=== PATIENT | female | born 1950 | race Caucasian/White ===

== ENCOUNTER 2024-08-15 10:00 | Emergency (ER) | payer OTHER, SELFPAY ==
[2024-08-15 10:03] VITALS: BP 146/57
--- NOTE | 2024-08-15 12:02 | ED.GENMED ---
History of Present Illness
General
Chief Complaint: Cardiac Symptoms
Time Seen by Provider: 08/15/24 11:40
History of Present Illness
History of Present Illness:
74-year-old female with history of hypertension presents to the emergency department for evaluation of a reportedly abnormal EKG. Patient was seen in urgent care for symptoms of fever, body aches, sore throat, and general aches for the past 24
hours. While there she reportedly had a positive strep test, negative COVID and flu, and unremarkable chest x-ray. He also attempted an EKG concerned about the reading thus sent her to the emergency department for further workup. The patient
explicitly denies any chest pain, shortness of breath, or dyspnea on exertion.
Past History
Past History
ED Past Medical History: None
Review of Systems
Review of Systems
Allergies reviewed?: Yes
All Other Systems: ROS reviewed and negative except as documented in HPI and ROS
Phy Exam
Physical Exam
Physical Exam:
GEN: Well appearing, NAD, WDWN
HEENT: Oral mucosa moist, no scleral icterus
Cardiac: Regular rate and rhythm, no murmurs
Lung: No respiratory distress, no tachypnea, lungs clear to auscultation bilaterally
MSK: No gross deformity or injuries
Skin: Good color, no pallor or jaundice, no rashes
Neuro: AO x3, moves all extremities freely
Psych: Calm, cooperative
Sepsis
Sepsis Screening
Sepsis Assessment: Sepsis Ruled Out
Sepsis Screen
Sepsis Screen: Sepsis Ruled Out
Date: 08/15/24
Time: 14:55
Course
Orders/Labs/Results
Orders:
Orders
08/15/24 10:03
Electrocardiogram (*1) Urgent
Reason for Study: Abnormal EKG
EKG- Treatment ONCE
Vital Signs
Initial and Last Documented VS:
Initial Vital Signs
Temp Pulse Resp BP Pulse Ox
101 F H 101 16 146/57 94
08/15/24 10:03 08/15/24 10:03 08/15/24 10:03 08/15/24 10:03 08/15/24 10:03
Last Documented Vital Signs
Temp Pulse Resp BP Pulse Ox
101 F H 90 14 146/57 95
08/15/24 10:03 08/15/24 11:45 08/15/24 11:45 08/15/24 10:03 08/15/24 11:45
MDM/Problems Addressed
MDM/Problems Addressed:
EKG does have subtle lateral ST depressions however the patient has no active symptoms concerning for coronary disease thus there is no indication for workup here. Will recommend outpatient cardiology follow-up on a routine basis
*Critical Care Note
Total Time (30-74mins, 75-104mins- exclusive of procedures): Not Applicable
ED Attending Note
-
Portions of this chart may have been created with voice recognition software.� Occasional wrong word or��sound alike� substitutions may have occurred due to the inherent limitations of voice recognition software.
Discharge Plan
Departure
Patient Disposition: Home (Routine Discharge)
Date of Disposition: 08/15/24
Time of Disposition: 12:03
Patient with high blood pressure during this ER visit?: Yes
Discharge Problem:
Acute streptococcal pharyngitis, Abnormal ECG
Instructions: Strep Throat ED
Referrals:
Lolly Nelson DO [Family Provider] -
Agnieszka Plata MD [Active] -
Interventions
Interventions:
*Risk Screen - Suicide Last Done: 08/15/24 10:05
*General Assessment Last Done: 08/15/24 11:43
*Neglect/Abuse Screening Last Done: 08/15/24 10:05
ED- Fall Risk Assessment Last Done: 08/15/24 11:45
*ED COVID-19 Vaccine History Last Done: 08/15/24 11:43
*Nursing Disposition Last Done: 08/15/24 12:37
ED- Pulmonary Assessment Last Done: 08/15/24 11:43
ED- Cardiac Assessment Last Done: 08/15/24 11:45
Discharge Date and Time
Discharge Date/Time: 08/15/24 12:39
Print Language: [id number]
== END 2024-08-15 12:39 | disposition home or self-care (01) ==
LOC: EMR 10:00
PROVIDERS: EMERGENCY PHYSICIAN Emergency Medicine; FAMILY PHYSICIAN Family Medicine
DX: J02.0 Streptococcal pharyngitis (principal); R94.31 Abnormal electrocardiogram [ECG] [EKG]; I10 Essential (primary) hypertension
CPT/HCPCS: 99283; 93005

== ENCOUNTER → 2024-10-22 09:14 | Outpatient (REF) | payer OTHER, SELFPAY | LOC: HWRCS 09:14 | PROVIDERS: ATTENDING PHYSICIAN Internal Medicine; FAMILY PHYSICIAN Family Medicine | DX: R94.31 Abnormal electrocardiogram [ECG] [EKG] (principal); R06.09 Other forms of dyspnea; Z82.49 Family history of ischemic heart disease and other diseases of the circulatory system; I10 Essential (primary) hypertension; E78.2 Mixed hyperlipidemia; R73.03 Prediabetes | CPT/HCPCS: 93306 ==

== ENCOUNTER → 2024-11-02 08:08 | Outpatient (REF) | payer OTHER, SELFPAY | LOC: HWRCS 08:08 | PROVIDERS: ATTENDING PHYSICIAN Internal Medicine; FAMILY PHYSICIAN Family Medicine | DX: R94.31 Abnormal electrocardiogram [ECG] [EKG] (principal); R06.09 Other forms of dyspnea; R73.03 Prediabetes; E78.2 Mixed hyperlipidemia; Z82.49 Family history of ischemic heart disease and other diseases of the circulatory system; I10 Essential (primary) hypertension | CPT/HCPCS: 78452; 93017; A9500; J2785 ==